=== PATIENT | female | born 1960 | race Caucasian/White ===

== ENCOUNTER 2018-02-17 12:45 | Day surgery (SDC) | payer BC ==
[~2018-02-17 12:45] MED LIST: Buffered Lidocaine 0.9% SYRIN* 5 ML/SYR SYRINGE INTRADERM ONE
[2018-02-17] MEDS ORDERED: ceFAZolin 2 GM PREMIX (*) 2 GM/50 ML BAG IVPB ONE (13:01)
[2018-02-17] MEDS ORDERED: Buffered Lidocaine 0.9% SYRIN* 5 ML/SYR SYRINGE ONE (13:01)
[2018-02-17] MEDS ORDERED: Midazolam* 1 MG/ML 2 ML VIAL (2 MG) ONE (13:29)
[2018-02-17] MEDS ORDERED: fentaNYL* 50 MCG/ML 2 ML VIAL (100 MCG VIAL) ONE ×5 (13:29→21:14)
[2018-02-17] MEDS ORDERED: Bupivacaine 0.25% SDV* 30 ML ONE (14:16)
[2018-02-17] MEDS ORDERED: Naloxone* 0.4 MG/ML 1 ML VIAL IV PRN (16:02)
[2018-02-17] MEDS ORDERED: DiMENhydriNATE IV* 50 MG/ML VIAL IV PUSH PRN (16:02)
[2018-02-17] MEDS ORDERED: Acetaminophen TAB* 325 MG PO PRN (16:02)
[2018-02-17] MEDS ORDERED: PROCHLORPERAZINE INJ 5 MG/ML 2 ML VIAL IV PRN (16:02)
[2018-02-17] MEDS ORDERED: HYDROcodone/ACETAMIN 5-325 MG* 1 TAB PO PRN ×2 (16:02)
[2018-02-17] MEDS ORDERED: Dexamethasone IV* 4 MG/ML 1 ML (4 MG) ONE (18:01)
[2018-02-17] MEDS ORDERED: Ketorolac INJ* 30 MG/ML 1 ML VIAL ONE (18:01)
[2018-02-17] MEDS ORDERED: Propofol* 10 MG/ML 20 ML BTL IV PUSH ONE (18:01)
[2018-02-17] MEDS ORDERED: Famotidine IV* 10 MG/ML 2 ML (20 mg) ONE (18:01)
[2018-02-17] MEDS ORDERED: Lidocaine 2% PF * 5 ML VIAL ONE (18:41)
[2018-02-17] MEDS ORDERED: HYDROcodone/ACETAMIN 5-325 MG* 1 TAB ONE ×2 (20:03→20:46)
[2018-02-17] MEDS: fentaNYL* 50 MCG/ML 2 ML VIAL (100 MCG VIAL) IV PRN ×5 (20:07→21:16)
[2018-02-17] MEDS ORDERED: Acetaminophen TAB* 325 MG ONE (20:55)
[2018-02-17 22:06] VITALS: BP 132/57
--- NOTE | 2018-02-21 13:35 | OP ---
DATE OF OPERATION: 02/17/18 [facility] DATE OF : 62 SURGEON: Celestine Camara M.D. PSYCHIATRIC TECHNICIAN: MOUNA Dutta. An television production assistant was needed for the entirety of the procedure to aid in positioning of the arm in retraction. ANESTHESIOLOGIST: Sumi Crooks MD ANESTHESIA: General. PRE-OP DIAGNOSES: 1. Left stage 3 basal joint arthritis. 2. Left carpal tunnel syndrome. POST-OP DIAGNOSES: 1. Left stage 3 basal joint arthritis. 2. Left carpal tunnel syndrome. OPERATIVE PROCEDURE: 1. Left thumb carpometacarpal arthroplasty with trapeziectomy. 2. Distally based split flexor carpi radialis tendon transfer for thumb suspension and tendon interposition. 3. Left carpal tunnel release. INDICATIONS: Teressa is 57 years old. She has severe pain related to stage 3 basal joint arthritis, as well as carpal tunnel symptoms. We had talked about risks and benefits. She had wanted to proceed with surgery. ESTIMATED BLOOD LOSS: 2 mL. COMPLICATIONS: None. FINDINGS: As expected. DESCRIPTION OF PROCEDURE: Teressa was seen in the preoperative holding area, and the correct site, side, and procedure were identified. We came back to the operating room. The arm was prepped and draped in the usual fashion. A time- out was performed. I exsanguinated the arm with the Esmarch and the tourniquet was inflated to 250 mmHg. I began by making a 2- to 3-cm incision in standard location for an open carpal tunnel release. Dissection was carried down through the subcutaneous tissue and palmar fascia. The transverse carpal ligament was released just off the radial aspect of the hook of the hamate. The release was carried out from distal to proximal. When I got proximal release of the fascia and subcutaneous tissue, I retracted this volarly and ulnarly with a Florinda retractor. I then used the tenotomy scissors to release the remainder of the transverse carpal ligament and distal antebrachial fascia. Once there was absolutely no compression on the nerve, I irrigated out the wound and the skin was closed with 4-0 nylon suture. I then made a 2- to 3-cm incision over the dorsoradial thumb CMC joint. Dissection was carried down longitudinally to preserve the sensory nerves. I came just dorsal to the first dorsal compartment tendons and then dissected out the radial artery, immobilized this and protected it out throughout the case. I made a longitudinal incision and raised subperiosteal and capsular flaps off the trapezium to expose the scaphotrapezial, the carpometacarpal and the trapeziotrapezoid joints. The soft tissue was released circumferentially and then the trapezium was excised in its entirety with the rongeur. The FCR tendon was preserved in the base of the wound. I then released the periosteum off the dorsal radial thumb metacarpal base. I then used sequentially larger drill bits to create a bone tunnel from the dorsal radial metacarpal base extending out the proximal ulnar articular surface of the metacarpal base. The wound was then irrigated out and we turned our attention to the tendon transfer. I made a 1-cm transverse incision just proximal at the wrist flexion crease. The sheath overlying the FCR tendon was released. The tendon was delivered up into the wound and split with a 15-blade, and a 26-gauge wire was passed into the tendon split. I then created two more transverse incisions, about 7 or 8 cm proximal to the last. The sheath was released along the entirety of the tendon under the skin. I then passed a Emilia clamp down into the most proximal wound and retrieved the 26- gauge wire and pulled this into the more proximal wound sequentially. The tendon was split and released at the musculotendinous junction. I then used two 26-gauge wires to shuttle this split into the FCR tendon down into the thumb base wound. The tenotomy scissors were used to split the tendon all the way down to the base of the second metacarpal. The split end of the tendon was delivered through the bone tunnel around the intact limb of the FCR tendon. Appropriate tension was set and then a ddevvd-lr-bduwa 3-0 Ethibond suture was used to secure all three limbs of the tendon transfer. Two additional sgxujm-lt-blydo sutures were used to sew intact limb to intact limb. At this point, the thumb was suspended very nicely and in a very nice position. I balled up the rest of the tendon and secured it with a 3-0 Ethibond suture and docked this into position between the base of the metacarpal and the distal pole of the scaphoid. I had inspected the scaphotrapezoid joint and the articular cartilage there looked very good. With the tendon transfer complete, I went ahead and closed the capsule with 3-0 Ethibond suture. All the wounds were irrigated and closed with 4-0 nylon suture. 0.25% plain Marcaine was infiltrated along all the operative wounds. The wounds were dressed with Xeroform, 4 x 4s, sterile Webril , and then a thumb spica splint was applied with the thumb in the abducted position. The tourniquet was deflated and the hand pinked up immediately, and she was taken to the recovery room in stable condition. [id number]/[facility] #: [id number] [facility] CENTERDamien
== END 2018-02-17 22:23 | disposition home or self-care (01) ==
LOC: OR 12:45
PROVIDERS: ATTEND Orthopaedic Surgery Hand Surgery
DX: M18.12 Unilateral primary osteoarthritis of first carpometacarpal joint, left hand (principal); G56.02 Carpal tunnel syndrome, left upper limb; E11.9 Type 2 diabetes mellitus without complications; Z79.84 Long term (current) use of oral hypoglycemic drugs; Z87.891 Personal history of nicotine dependence; I10 Essential (primary) hypertension; J45.909 Unspecified asthma, uncomplicated; F41.9 Anxiety disorder, unspecified
CPT/HCPCS: 88304; 88311; A9270-GY; J0690; J1100; J1885; J2250; J2704; J3010

== ENCOUNTER 2018-12-09 07:00 | Inpatient (IN) | payer BC ==
[~2018-12-09 07:00] MED LIST changes: -Buffered Lidocaine 0.9% SYRIN* 5 ML/SYR SYRINGE INTRADERM ONE; +Buffered Lidocaine 1% SYRIN* 1 ML/SYRINGE INTRADERM ONE; +Lactated Ringers 1000 ML Bag* 1,000 ML IV SCH
[2018-12-09] MEDS ORDERED: Heparin VIAL(*) 5000 UNITS/ML VIAL (FIVE THOUSAND) ONE (07:53)
[2018-12-09] MEDS ORDERED: ceFAZolin 1 GM ADVAN(*) 1 GM ADDV.VIAL IVPB ONE (07:53)
[2018-12-09] MEDS ORDERED: Clindamycin 900 MG/D5W BAG(*) 900 MG/50 ML BAG IVPB ONE (07:54)
[2018-12-09] MEDS ORDERED: ceFAZolin 2 GM PREMIX in ORs 2 GM/50 ML BAG IVPB ONE (07:54)
[2018-12-09] MEDS ORDERED: Dexamethasone IV* 4 MG/ML 1 ML (4 MG) ONE (09:03)
[2018-12-09] MEDS ORDERED: Propofol* 10 MG/ML 20 ML BTL ONE (09:03)
[2018-12-09] MEDS ORDERED: Ondansetron INJ* 2 MG/ML VIAL ONE (09:03)
[2018-12-09] MEDS ORDERED: Rocuronium* 10 MG/ML VIAL ONE ×2 (09:03→10:01)
[2018-12-09] MEDS ORDERED: Midazolam* 1 MG/ML 5 ML VIAL (5 MG) ONE (09:03)
[2018-12-09] MEDS ORDERED: fentaNYL* 50 MCG/ML 2 ML VIAL (100 MCG VIAL) ONE ×2 (09:03→11:16)
[2018-12-09] MEDS ORDERED: Bupivacaine 0.5% W/EPI SDV* 30 ML VIAL ONE (09:32)
[2018-12-09] MEDS ORDERED: Lidocaine 1% INJ* 10 MG/ML 30 ML SDV ONE (09:32)
[2018-12-09] MEDS ORDERED: DiMENhydriNATE IV* 50 MG/ML VIAL IV PUSH PRN (10:18)
[2018-12-09] MEDS ORDERED: Scopolamine 1.5 mg* PATCH TRANSDERM PRN (10:18)
[2018-12-09] MEDS ORDERED: Ondansetron INJ* 2 MG/ML VIAL IV PRN (10:18)
[2018-12-09] MEDS ORDERED: Naloxone* 0.4 MG/ML 1 ML VIAL IV PRN (10:18)
[2018-12-09] MEDS ORDERED: Phenylephrine IV* 40 MCG/ML 10 ML SYRINGE ONE (10:23)
[2018-12-09] MEDS ORDERED: Neostigmine Methylsulfate* 3 MG/3 ML SYRINGE ONE (10:34)
[2018-12-09] MEDS ORDERED: Glycopyrrolate IV* 0.2 MG/ML 1 ML VIAL ONE (10:35)
[2018-12-09] MEDS ORDERED: Ketorolac INJ* 30 MG/ML 1 ML VIAL ONE (10:38)
--- NOTE | 2018-12-09 10:56 | OP ---
Operative Report - Blank - Operative Report Date of Operation: 12/09/18 Note: Brief Operative Note Preop Dx: morbid obesity Postop Dx: same Procedure: laparoscopic sleeve gastrectomy Anesthesia: GET Surgeon: Lefty Copy Holder: MOUNA Nguyen Fluids: 1750 ml RL EBL: < 50 ml Specimen: portion of stomach Drains: none Findings: dictated
[2018-12-09] MEDS ORDERED: Acetaminophen ADULT LIQ* 650 MG/20.3 ML UDC PO PRN (10:57)
[2018-12-09] MEDS ORDERED: DiMENhydriNATE IV* 50 MG/ML VIAL ONE (11:11)
[2018-12-09] MEDS: fentaNYL* 50 MCG/ML 2 ML VIAL (100 MCG VIAL) IV PRN ×4 (11:16→12:24)
[2018-12-09] MEDS ORDERED: HYDROmorphone INJ1* 1 MG/ML SYRINGE ONE (11:48)
[2018-12-09] MEDS: HYDROmorphone INJ1* 1 MG/ML SYRINGE IV PRN ×8 (11:49→21:21)
[2018-12-09] MEDS: Lactated Ringers 1000 ML Bag* 1,000 ML IV SCH ×2 (13:15→19:50)
[2018-12-09] MEDS: Ketorolac INJ* 30 MG/ML 1 ML VIAL IV PRN (16:26)
[2018-12-09] MEDS: Famotidine IV* 10 MG/ML 2 ML (20 mg) IV SLOW PU SCH (21:14)
[2018-12-09] MEDS: Heparin VIAL(*) 5000 UNITS/ML VIAL (FIVE THOUSAND) SUBCUT SCH (21:15)
[2018-12-09] MEDS: Ondansetron INJ* 2 MG/ML VIAL IV PRN (21:26)
[2018-12-10] MEDS: Ketorolac INJ* 30 MG/ML 1 ML VIAL IV PRN ×2 (01:07→18:23)
[2018-12-10] MEDS: HYDROmorphone INJ1* 1 MG/ML SYRINGE IV PRN ×4 (01:12→13:58)
[2018-12-10] MEDS: Lactated Ringers 1000 ML Bag* 1,000 ML IV SCH (02:25)
[2018-12-10] MEDS: Heparin VIAL(*) 5000 UNITS/ML VIAL (FIVE THOUSAND) SUBCUT SCH ×3 (05:35→21:59)
--- NOTE | 2018-12-10 09:06 | PN ---
Progress Note - Progress Note Date of Service: 12/10/18 SOAP: Subjective:pod#1 s/p lap sleeve gastrectomy ambulating;good pain control;no n/v;no flatus [] Objective: Vital Signs Temp 98.7 F 12/10/18 07:30 Pulse 68 12/10/18 07:30 Resp 16 12/10/18 07:30 BP 133/68 12/10/18 07:30 Pulse Ox 96 12/10/18 07:30 Intake & Output 12/09/18 12/10/18 12/10/18 18:59 06:59 18:59 Intake Total 2149 1959 Output Total 100 650 Balance 2049 131 Weight 211 lb 6.4 oz Intake: IV Fluids 2149 1959 CEFAZOLIN 3 GM 100 CLINDAMYCIN 900 MG 50 LR 1999 1959 Oral 0 0 Output: Urine 100 650 Other: Estimated Blood Loss 50 Comment lungs:clear bilat;heart:RRR;abd:few bs;soft;appropriate tenderness around incisions,no erythema or drainage;ext:nontender calves [] Assessment:doing well pod#1 s/p lap sleeve [] Plan:start len clears ambulate inspiron recheck later,possible discharge []
[2018-12-10] MEDS: Famotidine IV* 10 MG/ML 2 ML (20 mg) IV SLOW PU SCH ×2 (09:13→21:41)
[2018-12-10] MEDS: Ondansetron INJ* 2 MG/ML VIAL IV PRN ×3 (09:23→22:48)
[2018-12-10] MEDS ORDERED: Benzocaine/Menthol LOZ* 1 LOZENGE PO PRN (10:12)
[2018-12-10] MEDS: D5W 1/2 NS KCl 20 Meq 1000 ML* 1,000 ML IV SCH ×2 (13:59→21:57)
--- NOTE | 2018-12-10 14:23 | PN ---
Progress Note - Progress Note Date of Service: 12/10/18 Note: Seen this AM and again in PM. Now c/o nausea and inability to tolerate po. Encouraged to slow po intake and use meds prn. Encouraged to ambulate frequently. Hope to be able to d/c home in AM pending ability to tolerate adequate po.
[2018-12-10] MEDS ORDERED: Metoclopramide IV* 5 MG/ML 2 ML VIAL ONE (18:07)
[2018-12-10] MEDS: Metoclopramide IV* 5 MG/ML 2 ML VIAL IV PRN (18:25)
--- NOTE | 2018-12-11 00:49 | OP ---
CC: Tanesha Tena MD; [facility] * DATE OF OPERATION: 12/09/18 - ROOM #353 DATE OF : 62 SURGEON: Cristhian Olea MD [place] ATTORNEY: MOUNA Oakes ANESTHESIOLOGIST: Christian Molina MD ANESTHESIA: General endotracheal. PRE-OP DIAGNOSIS: Clinically severe obesity. POST-OP DIAGNOSIS: Clinically severe obesity. OPERATIVE PROCEDURE: Laparoscopic sleeve gastrectomy. ESTIMATED BLOOD LOSS: Less than 50 mL. IV FLUIDS: 1.75 L crystalloid. SPECIMEN: Portion of stomach. DRAINS: None. COMPLICATIONS: None. COUNTS: Instrument, needle, and sponge counts were correct. DESCRIPTION OF PROCEDURE: The patient was brought to the operating room and placed on the table supine. Sequential compression devices were placed on both lower extremities. General anesthesia was administered. She was positioned and padded appropriately. She was prepped and draped in the usual sterile fashion and time-out was performed. Local anesthetic was infiltrated into the skin and soft tissue prior to making each incision. Entry to the abdomen was through a left upper quadrant incision accommodating a 5-mm optical trocar. After accessing the peritoneal cavity, carbon dioxide was insufflated to a pressure of 15 mmHg. Under direct visualization, 12- mm bladeless trocars were placed in the supraumbilical, midline, and in the right upper quadrant. Additionally, a 5-mm trocar was placed laterally in the left upper quadrant and a Leidy liver retractor was placed percutaneously in the subxiphoid position and used to elevate the left lobe of the liver. Gastric anatomy appeared normal. The stomach was mobilized on the greater curvature skeletonizing the using LigaSure device. This proceeded from 6 cm proximal to the pylorus all the way up to the gastroesophageal junction. Posterior short gastric vessels were divided as well as adhesions within the lesser sac. The epigastric fat pad was mobilized and brought to allow full visualization of the fundus. Next, a sleeve gastrectomy was performed using serial firings of the EndoGIA stapler with purple reinforced cartridges over a 40-Fijian bougie. After completing the gastrectomy, the specimen was retrieved using retrieval bag through the right upper quadrant port. After assuring hemostasis and noting that the staple lines were all intact, the ports were removed as was the Liedy liver retractor. Carbon dioxide was released and the wounds were closed with 4-0 Monocryl in subcuticular fashion. Steri-Strips were applied with dressing. The patient tolerated the procedure well, was extubated and transferred to recovery in stable condition. [id number]/[facility] #: [id number] [place]
[2018-12-11] MEDS: Ketorolac INJ* 30 MG/ML 1 ML VIAL IV PRN ×2 (01:33→07:59)
[2018-12-11] MEDS: Metoclopramide IV* 5 MG/ML 2 ML VIAL IV PRN (01:33)
[2018-12-11] MEDS: D5W 1/2 NS KCl 20 Meq 1000 ML* 1,000 ML IV SCH ×2 (06:06→14:14)
[2018-12-11] MEDS: Heparin VIAL(*) 5000 UNITS/ML VIAL (FIVE THOUSAND) SUBCUT SCH ×3 (06:07→22:00)
[2018-12-11] MEDS: Famotidine IV* 10 MG/ML 2 ML (20 mg) IV SLOW PU SCH ×2 (07:59→21:04)
[2018-12-11] MEDS: HYDROcodone/ACET. 7.5/325 LIQ* 15 ML UDC PO PRN ×2 (14:12→21:00)
--- NOTE | 2018-12-11 15:50 | PN ---
Progress Note - Progress Note Date of Service: 12/11/18 SOAP: Subjective:feels better,no n/v,tolerating clears,passed flatus [] Objective: Vital Signs Temp 98.9 F 12/11/18 07:40 Pulse 73 12/11/18 07:40 Resp 20 12/11/18 14:12 BP 136/54 12/11/18 07:40 Pulse Ox 97 12/11/18 07:40 Intake & Output 12/10/18 12/11/18 12/11/18 18:59 06:59 18:59 Intake Total 60 1969 1294 Output Total 1200 3150 1900 Balance -1140 -1181 -606 Intake: IV Fluids 1968 994 D5W 1/2 NS 20 meq KCL 1968 994 Oral 60 0 300 Output: Urine 1200 3150 1900 lungs:clear bilat;heart:RRR;abd:+bs,soft;incisions intact with steristrips,no drainage or erythema;ext:nontender calves [] Assessment:POD#2 s/p lap sleeve gastrectomy,kati clears,no further n/v [] Plan:pt wishes to wait until tomorrow morning to go home; nervous about recurrence of n/v;will hep lock IV;may shower updated []
[2018-12-12] MEDS: Heparin VIAL(*) 5000 UNITS/ML VIAL (FIVE THOUSAND) SUBCUT SCH (06:31)
[2018-12-12 08:07] VITALS: BP 139/86
--- NOTE | 2018-12-12 09:39 | DS ---
CC: Dr. Tanesha Tena * DISCHARGE SUMMARY: DATE OF ADMISSION: 12/09/18 DATE OF DISCHARGE: 12/12/18 ATTENDING PHYSICIAN: Cristhian Olea MD * (DICTATED BY TIP LOPEZ NP) HOSPITAL COURSE: Please refer to admission history and physical for admission details. The patient was taken to the operating room on 12/09/18 and underwent laparoscopic sleeve gastrectomy by Dr. Olea. During her postoperative course, she had nausea and vomiting and required ongoing IV fluids ; as of yesterday, 12/11/18, her nausea and vomiting had resolved. She was well hydrated. She had a good urine output and she was able to take oral pain medication with good control. She was able to meet the criteria for oral intake of bariatric clear liquids. She was ambulating in the halls and using her Inspiron. PHYSICAL EXAMINATION: General: Well appearing, in no acute distress. Vital signs are stable. O2 saturation 98% on room air. Lungs: Breath sounds bilaterally clear and equal. Heart: Regular rate and rhythm. No murmurs or rubs appreciated. Abdomen: Laparoscopic port sites are intact with Steri- Strips which are clean and dry, there is no surrounding erythema or drainage; she has active bowel sounds; her abdomen is soft with mild appropriate incisional tenderness. Skin: Warm and dry. Extremities: Nontender calves. IMPRESSION: Status post laparoscopic sleeve gastrectomy, doing extremely well. PLAN: Discharged home today. Instructions were reviewed with the patient. She has a followup appointment with Dr. Olea on 12/17/18. All of her medications were reviewed. She has a prescription for Lortab Elixir as needed and she may use [id number] Tylenol for mild pain. TIP LOPEZ NP [id number]/[facility] #: [id number] [place]
[2018-12-12] MEDS ORDERED: Scopolamine PATCH Remove* 1 NOTE MISC PATCH OFF ONE (10:19)
== END 2018-12-12 10:27 | disposition home or self-care (01) | DRG 403 ==
LOC: AA 07:00 → SSU 12:57
PROVIDERS: ADMIT Surgery; ATTEND Surgery
PROC: 0DB64Z3 Excision of Stomach, Percutaneous Endoscopic Approach, Vertical (ICD-10-PCS; principal; 2018-12-09 09:00)
DX: E66.01 Morbid (severe) obesity due to excess calories (principal); Z68.36 Body mass index [BMI] 36.0-36.9, adult; E78.5 Hyperlipidemia, unspecified; E89.0 Postprocedural hypothyroidism; I10 Essential (primary) hypertension; E11.9 Type 2 diabetes mellitus without complications; G47.33 Obstructive sleep apnea (adult) (pediatric); R11.2 Nausea with vomiting, unspecified; Z82.49 Family history of ischemic heart disease and other diseases of the circulatory system; Z82.3 Family history of stroke; Z80.3 Family history of malignant neoplasm of breast; Z82.0 Family history of epilepsy and other diseases of the nervous system; Z72.89 Other problems related to lifestyle; Z87.891 Personal history of nicotine dependence
CPT/HCPCS: 43775; 88307; J0690; J1100; J1170; J1240; J1644; J1885; J2250; J2405; J2704; J2710; J2765; J3010